=== PATIENT | male | born 1960 | race Caucasian/White ===

== ENCOUNTER 2017-01-03 17:53 | Emergency (ER) | payer OTHER ==
[~2017-01-03] VITALS: Ht 170.2 cm; Wt 90.9 kg
[~2017-01-03 17:53] MED LIST: BENZ-12 PO; GUAI118L13 PO; IBUP-1827 PO
[2017-01-03 18:13] VITALS: BP 127/82; PULSE 65; RESP 16; O2SAT 98
== END 2017-01-03 20:00 | disposition left against medical advice (07) ==
LOC: SED 17:53
DX: R06.02 Shortness of breath (principal); X50.9XXA Other and unspecified overexertion or strenuous movements or postures, initial encounter; Y93.89 Activity, other specified; Y92.9 Unspecified place or not applicable; Y99.8 Other external cause status

== ENCOUNTER 2017-01-03 22:25 | Emergency (ER) | payer OTHER ==
[~2017-01-03] VITALS: Ht 170.2 cm; Wt 95.5 kg
[2017-01-03 23:02] VITALS: BP 139/92; PULSE 75; RESP 16; O2SAT 100
--- NOTE | 2017-01-04 00:01 | ED.REPORT ---
HPI-General Illness Date of Service Jan 04, 2017 ED Provider: Teresa Roman MD This is a 56 year old male presenting to the emergency department complaining of L sided rib pain that began 6 hours ago. Pt states he sneezed and immediately developed L sided pain. Associated symptoms include constant shortness of breath secondary to pain. Denies recent falls, injuries, cough, nausea, vomiting, or headache. Nursing Notes Stated Complaint: RIB PAIN Chief Complaint: General Complaint Nursing Notes Reviewed: Yes Allergies: Coded Allergies: No Known Allergies (Verified , 01/03/17) Scheduled PRN Benzonatate (Tessalon Perle) 100 Mg Capsule 100 MG PO TID PRN PRN For Cough Guaifenesin/Codeine Phosphate (Cheratussin AC Syrup) 118 Ml Liquid 118 ML PO BID PRN PRN For Cough Ibuprofen (Ibuprofen) 600 Mg Tablet 600 MG PO QID PRN PRN For Pain General Time Seen by MD: 23:59 Chief Complaint Other Hx Obtained From: Patient Arrived By: Walk-in Sudden in Onset?: Yes Onset Occurred: 5 - 8 hours ago Symptom Duration: Since onset Severity: Current: Moderate Pertinent Negative: Pt denies other symptoms Recent Healthcare: No recent doctor visit, No recent hospitalization Similar Sx Previous: No Past Medical History Past Medical History denies Family History Reviewed, not relevant Smoking History Unknown if Ever Smoker Social History Drug Use: In recovery, Cocaine, Meth, THC 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 Physical Exam Vital Signs Vital Signs Date Time Temp Pulse Resp B/P Pulse Ox O2 Delivery O2 Flow Rate FiO2 01/03/17 23:02 36.4 75 16 139/92 100 Room Air Initial VS: Reviewed General/Constitutional: Well-developed, Well-nourished Head / Eyes: Atraumatic, Normocephalic, PERRL ENT: Mucous membranes moist, Conjunctiva normal, No scleral icterus Neck: Supple, Non-tender, Full range of motion Respiratory: Breath sounds normal, Clear to auscultation, No respiratory distress Abdomen / GI: Soft, Non-tender, No guarding, No rebound, No distention Extremities: Vascular intact, Neuro intact, No swelling, No tenderness Skin: Warm, Dry, No cyanosis Neurologic: Alert, Oriented, Nonfocal Psychiatric: Mood/affect normal, Behavior normal, Normal thought content Respiratory / Chest: Breath sounds NL, No respiratory distress, No rales, No rhonchi, No wheezing Tender to palpation along lower ribs in mid-axillary line on the left. Interpretation & Diagnostics X-Ray Chest Interpretation Chest Xray Interpretation: No obvious rib fractures Interpretation / Wet Read by: Wet read ED physician NL X-Ray Chest Findings: No infiltrate, No acute disease Re-Eval/Medical Decision Med Decision/Clinical Course 56-year-old male here with left-sided rib pain after sneezing without obvious deformity or trauma. Differential diagnosis includes but is not limited to rib fracture versus rib contusion versus pneumothorax versus pain medication seeking behavior. X-ray was unremarkable. Patient was given ibuprofen and an incentive spirometer in the emergency department, given strict return precautions, and was amenable to discharge. Time of Eval: 01:05 Re-Evaluation/Progress Note: Discussed lab results and plan for d/c, all questions addressed. Counseled Regarding: Diagnosis, Lab results, Need for follow-up Discharge & Departure Primary Impression: Rib pain Disposition: Home Discharge Condition All VS Reviewed: Yes Condition: Stable Additional Instructions: Thank you for seeking care at the emergency department today. Use the incentive spirometer as discussed. Take ibuprofen as needed for control. Follow-up with your primary care provider. Return to the emergency department for any new or worsening symptoms Referrals: Barrett Carrasco DO (PCP) Scribe Attestation Portions of this note were transcribed by Debbi Linn. I, Dr. Roman personally performed the history, physical exam and medical decision-making; I reviewed and confirmed the accuracy of the information in the transcribed note. Signed by: cinda Graham. 01/03/2017, 03:00. Teresa Roman MD Jan 04, 2017 00:01 DEBBI LINN Jan 04, 2017 00:05
[2017-01-04 01:26] VITALS: BP 108/62; PULSE 77; RESP 14; O2SAT 95
[2017-01-04 01:33] VITALS: BP 108/62; PULSE 77; RESP 14; O2SAT 95
--- NOTE | 2017-01-04 10:26 | DRSVH ---
PROCEDURE: X-RAY CHEST, TWO VIEWS ([id number]) INDICATIONS: left rib pain TECHNIQUE: 2 views of the chest were acquired. COMPARISON: [facility], CR, XR CHEST 2VW, 11/10/2016, 18:39. FINDINGS: Surgical changes and devices: None. Lungs and pleura: No pleural effusions or pneumothorax. Lungs are clear. Mediastinum: Mediastinal contours are normal. Heart size is normal. Bones and chest wall: No suspicious bony abnormalities. Soft tissues appear unremarkable. Seventh posterior-lateral rib fracture. Multiple lower thoracic spine no compression fractures unchanged. IMPRESSION: No acute cardiopulmonary disease. Dictated by: Yeison PFEIFFER Interpreted: Otoniel Iglesias MD on 01/04/2017 at 10:26 Transcribed by: YNES on 01/04/2017 at 10:26 Approved by: Low Iglesias M.D. on 01/04/2017 at 16:21
== END 2017-01-04 01:34 | disposition home or self-care (01) ==
LOC: SED 22:25
DX: R07.81 Pleurodynia (principal); R06.02 Shortness of breath

== ENCOUNTER 2017-07-20 01:59 | Emergency (ER) | payer OTHER ==
[~2017-07-20] VITALS: Ht 170.2 cm; Wt 100.0 kg
[2017-07-20 02:13] VITALS: BP 128/76; PULSE 81; RESP 14; O2SAT 98
--- NOTE | 2017-07-20 02:15 | ED.REPORT ---
HPI-Extremity Problem Upper Date of Service Jul 20, 2017 ED Provider: Jermain Barnes DO Patient is a 57 year old male who presents to the ED complaining of right shoulder pain. Associated symptoms include pain that shoots down his arm into his finger tips. He denies neck pain, chest pain, numbness or weakness. Patient reports that he is unsure what happened but he feels as though he "threw his arm out". The patient also states that the pain is relieved with traction. Nursing Notes Stated Complaint: RIGHT SHOULDER PAIN Chief Complaint: Extremity Trauma Nursing Notes Reviewed: Yes Allergies: Coded Allergies: No Known Allergies (Verified , 01/03/17) Scheduled PRN Benzonatate (Tessalon Perle) 100 Mg Capsule 100 MG PO TID PRN PRN For Cough Guaifenesin/Codeine Phosphate (Cheratussin AC Syrup) 118 Ml Liquid 118 ML PO BID PRN PRN For Cough Ibuprofen (Ibuprofen) 600 Mg Tablet 600 MG PO QID PRN PRN For Pain General Time Seen by MD: 02:15 Chief Complaint Shoulder injury right Hx Obtained From: Patient Arrived By: Walk-in Onset Occurred: Onset unknown Location: : Shoulder right Quality: Painful Severity: Current: Moderate Exacerbated by: Movement Similar Sx Previous: No Past Medical History Past Medical History denies Family History Reviewed, not relevant Smoking History Unknown if Ever Smoker Social History Drug Use: In recovery, 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 Respiratory: Denies: Non-productive cough, Shortness of breath Cardiovascular: Denies: Chest pain Physical Exam Initial Vital Signs Vital Signs (First) Date Time Temp Pulse Resp B/P Pulse Ox O2 Delivery O2 Flow Rate FiO2 07/20/17 02:13 36.8 81 14 128/76 98 Room Air Initial VS: Reviewed General/Constitutional: Awake, Alert Neck: Atraumatic, Supple, Full range of motion Respiratory / Chest: Atraumatic, No respiratory distress Upper Extremity / MS: Neurologic intact, Vascular intact pain with abduction movement relief of pain with traction bouding radial pulses sensation intact clearly musculoskeletal in nature Skin: Atraumatic, Color NL, No rash, Warm, Dry Neurologic: Oriented X3, Speech NL, No motor deficits, No sensory deficits Head / Eyes: Atraumatic, Normocephalic, PERRL, EOMI Lower Extremity / Pelvis / MS: Atraumatic, Full range of motion Psychiatric: Affect NL, Mood NL Interpretation & Diagnostics X-Ray Interpretation Xray Interpretation: no evidence of fracture X-Ray Ordered: Shoulder right Interpretation / Wet Read by: Wet read ED physician Interpretation: Normal exam Procedures Splint Application - Fx Mgt Time: 02:45 Procedure Performed by: Marketing Trainee Precise Anatomic Location: right shoulder Type of Immobilization: Sling Definitive Fracture Care: Sling Post-Procedure / Complications: Cap refill normal, Post splint vascular nl, Post splint neuro nl, Condition improved, Tolerated procedure well, Patient stable Re-Eval/Medical Decision Med Decision/Clinical Course Musculoskeletal right shoulder pain. Evidently Mr. 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 Presents traction on the shoulder seems to help. I do taken through range of motion was limited with extreme abduction and this foot reproduces the pain. There is no signs of DVT or acute arterial insufficiency. Bounding pulses. Nothing about this seems cardiac in nature. Clearly musculoskeletal pain. X-rays were reassuring. Intramuscular Toradol and 2 Percocet the pain away completely. I will have him immobilize his shoulder for the next 72 hours. Short course of Naprosyn and Percocet provided for pain. Follow-up with orthopedics. Routine opiate warnings given return if any problems or any worsening symptoms. Re-Evaluation/Progress : Time of Eval: 02:47 Patient Status: Condition improved Re-Evaluation/Progress Note: Discussed X-ray results, plan for ortho follow up and discharge. Patient understands and agrees to plan. All questions were addressed. Counseled Regarding: Diagnosis, Lab results, Need for follow-up, When/why to return to ED Discharge & Departure Impression: Primary Impression: Musculoskeletal pain of right upper extremity Disposition: Home Discharge Condition All VS Reviewed: Yes Condition: Stable Patient Instructions: Musculoskeletal Pain (ED) Additional Instructions: Your X-ray was normal and reassuring. There was no evidence of a fracture. Keep your shoulder in the sling/immobilized for the next 3 days. Call the orthopedic doctor tomorrow to schedule a follow up. You can take Naprosyn 2x a day as directed for moderate pain. You can take 1-2 [place] every 6 hours as needed for severe/break through pain. Do not combine with Acetaminophen. Do not drink alcohol or drive while taking the pain medication as it can have a sedating effect. Return to the emergency department if you develop any new or concerning symptoms. Referrals: Barrett Carrasco DO (PCP) Estuardo Vargas Attestation Portions of this note were transcribed by Yvonne Ellis. I, Dr. Barnes personally performed the history, physical exam and medical decision-making; I reviewed and confirmed the accuracy of the information in the transcribed note. Signed by: Alisa Raymond, 07/20/17 copies to: Barrett Carrasco DO; Estuardo Vargas Todd P DO Jul 20, 2017 02:15 Josee Ellis Jul 20, 2017 02:24
[2017-07-20] MEDS ORDERED: oxyCODONE-Acetamin 5-325 mg Tablet PO ONE (02:20)
[2017-07-20 03:32] VITALS: BP 128/76; PULSE 81; RESP 14; O2SAT 98
--- NOTE | 2017-07-20 16:55 | DRSVH ---
PROCEDURE: X-RAY RIGHT SHOULDER, MINIMUM TWO VIEWS ([id number]) INDICATIONS: right shoulder pain TECHNIQUE: 3 views of the shoulder were acquired. COMPARISON: None. FINDINGS: Bones: No fractures or dislocations. No suspicious bony lesions. Visualized ribs appear intact. M ild joint narrowing with periarticular osteophyte formation. Superior migration humeral head. Soft tissues: No suspicious soft tissue calcifications. IMPRESSION: Mild acromioclavicular and glenohumeral joint degeneration. Superior migration of the humeral head consistent with rotator cuff pathology and/or muscle atrophy. If indicated MRI could be performed to further evaluate the soft tissues. Dictated by: Yeison PFEIFFER Interpreted: Corry Cabello MD on 07/20/2017 at 8:58 Approved by: Brien Zacarias M.D. on 07/20/2017 at 16:53
== END 2017-07-20 03:32 | disposition home or self-care (01) ==
LOC: SED 01:59
DX: M79.621 Pain in right upper arm (principal)
CPT/HCPCS: 73030; 96372; 99284; J1885